=== PATIENT | male | born 1935 | race Caucasian/White ===

== ENCOUNTER 2019-03-03 15:34 | Inpatient (IN) | payer MEDICARE ==
[2019-03-03] MEDS ORDERED: Clindamycin/D5W 900 mg/50 ml Premix Bag ONE (16:06)
[2019-03-03] MEDS ORDERED: Piperacillin/Tazobactam 4.5 GM VIAL ONE (16:06)
[2019-03-03] MEDS ORDERED: Morphine 2 MG/ML SYRINGE ONE (16:06)
[2019-03-03] MEDS ORDERED: Ondansetron PF 4 MG/2 ML Vial ONE (16:06)
[2019-03-03 16:23] LABS: #Basophils 0.1 thou/uL (0.0-0.2); #Eosinphils 0.2 thou/uL (0.0-0.7); #Lymphocytes 2.3 thou/uL (1.20-3.40); #Monocytes 1.3 thou/uL (0.11-0.59); #Neutrophils 9.2 thou/uL (1.40-6.50); %Basophils 0.5 % (0.0-1.0); %Eosinophils 1.4 % (0.0-10.0); %Lymphocytes 17.4 % (21.0-51.0); %Monocytes 10.2 % (0.0-10.0); %Neutrophils 70.5 % (42.0-75.0); Hemoglobin 15.6 g/dL (14.0-18.0); Mean Corpuscular Hemoglobin 32.3 pg (27.0-31.0); Mean Corpuscular Volume 97.7 fL (78.0-98.0); Mean Platelet Volume 8.1 fL (7.4-10.4); Platelet Count 186 thou/uL (130-400); RBC Distribution Width 11.9 % (11.5-14.5); Red Blood Cell (RBC) Count 4.84 mill/uL (4.70-6.10); White Blood Cell (WBC) Count 13.1 thou/uL (4.8-10.8)
--- NOTE | 2019-03-03 16:39 | RAD ---
PORTABLE CHEST ONE VIEW: 03/03/19 at 4:13 p.m. HISTORY: Cough. FINDINGS/IMPRESSION: Comparison made with the exam of 08/23/16. Changes of median sternotomy and left sided and left sided AICD are again seen. The heart is enlarge d. No lobar consolidation, pneumothoraces, bev pulmonary edema or large effusions are seen. There a re changes of vertebroplasty in the lower thoracic spine. POS: [facility]
--- NOTE | 2019-03-03 16:41 | RAD ---
LEFT FINGER (THUMB) THREE VIEWS: 03/03/19 HISTORY: Fall, injury, left thumb pain, dislocation. FINDINGS/IMPRESSION: There is complete dorsal dislocation of the IP joint of the left thumb. There is suggestion of an avu lsion fracture involving the dorsal aspect of the base of the distal phalanx. POS: [facility]
[2019-03-03 16:43] LABS: Bilirubin Negative (Negative); Blood, Urine Negative (Negative); Clarity CLEAR (Clear); Glucose, Urine (Dipstick) Negative (Negative); Leukocyte Negative (Negative); Nitrite Negative (Negative); Protein, Urine (Dipstick) Negative (Neg-Trace); Specific Gravity, Urine 1.014 (1.002-1.036); pH, Urine 7.5 (5.0-9.0)
[2019-03-03 16:44] LABS: ALT (SGPT) 17 U/L (8-55); AST (SGOT) 18 U/L (5-34); Albumin 4.5 g/dL (3.4-4.8); Alkaline Phosphatase 78 U/L (40-150); Anion Gap 13 mmol/L (10-20); BUN (Urea Nitrogen) 13 mg/dL (8.4-25.7); Bilirubin, Total 1.3 mg/dL (0.2-1.2); Calc. Creatinine Clearance 0 mL/min (70-130); Calcium 9.5 mg/dL (7.8-10.44); Carbon Dioxide 28 mmol/L (23-31); Chloride 101 mmol/L (98-107); Estimated GFR-MDRD 80; Globulin 2.8 g/dL (2.4-3.5); Glucose 121 mg/dL (83-110); Potassium 3.9 mmol/L (3.5-5.1); Protein, Total 7.3 g/dL (5.8-8.1); Sodium 138 mmol/L (136-145)
[2019-03-03] MEDS ORDERED: Lidocaine 1% (PF) 30 ML VIAL ONE (16:54)
--- NOTE | 2019-03-03 18:43 | RAD ---
LEFT FINGER/THUMB TWO VIEWS: 03/03/19 HISTORY: Post reduction of dislocation. FINDINGS/IMPRESSION: Interval reduction of the dislocation at the IP joint of the left thumb has occurred since 4:15 p.m. of the same date. Anatomic alignment has been restored. Tiny bony density in the region of the IP jerome int likely represents a fracture. POS: [facility]
[2019-03-03] MEDS ORDERED: Adacel (T-DAP) 0.5 ML SYRINGE ONE (18:47)
[2019-03-03 20:22] LABS: Lactic Acid 1.1 mmol/L (0.5-2.2)
[2019-03-03 21:48] VITALS: BMI 27.7
[2019-03-03] MEDS ORDERED: Ondansetron PF 4 MG/2 ML Vial IVP PRN (22:08)
[2019-03-03] MEDS ORDERED: Ondansetron ODT 4 MG TAB SL PRN (22:08)
[2019-03-03] MEDS: Acetaminophen 325 MG TAB PO PRN (22:21)
[2019-03-03] MEDS: Sodium Chloride 0.9% 1,000 ML IV SCH (22:22)
[2019-03-03] MEDS: Piperacillin/Tazobactam 4.5 GM in Sodium Chloride 0.9% 100 ML IVPB SCH ×2 (22:25→23:01)
[2019-03-04] MEDS: Clindamycin/D5W 900 MG in Premix Bag 1 BAG IVPB SCH ×3 (00:03→17:07)
[2019-03-04] MEDS: Piperacillin/Tazobactam 4.5 GM in Sodium Chloride 0.9% 100 ML IVPB SCH ×4 (05:17→23:03)
[2019-03-04] MEDS: Acetaminophen 325 MG TAB PO PRN ×2 (05:18→20:38)
[2019-03-04] MEDS: Sodium Chloride 0.9% 1,000 ML IV SCH (08:16)
[2019-03-04] MEDS ORDERED: ISOVUE-370 76%-LOCM 1 ML ONE (13:00)
--- NOTE | 2019-03-04 13:23 | PDOC.EVN ---
Event Note - Event Note Event Note: H&P #[id number]
--- NOTE | 2019-03-04 14:35 | CT ---
CT scan head with and without contrast: Multiple axial tomograms obtained through the head pre and postcontrast administration. INDICATIONS: Headache COMPARISON: 09/22/2016 FINDINGS: Ventricles have normal size and position. Mild cortical volume loss is stable. No evidence of intracranial mass, hemorrhage, edema, or infarct. No abnormal enhancement identified on postcontrast study. Mild mucosal edema in the left maxillary antrum and in the ethmoid air cells. Lucencies in the bony calvarium are stable from prior exam and appear benign. IMPRESSION: No acute intracranial abnormality. Mucosal edema of paranasal sinuses as described.
[2019-03-04] MEDS: methylPREDNISolone Sod Succ 40 MG VIAL IVP SCH ×2 (17:08→23:03)
--- NOTE | 2019-03-04 18:57 | CON ---
DATE OF CONSULTATION: 03/04/2019 HISTORY OF PRESENT ILLNESS: Mr. Albert is an 83-year-old white male, who was at home. He states 2 days prior to admission, the patient began having a hard time breathing, became weaker, and the patient fell onto his left thumb, had immediate pain and deformity in the left thumb. Thus, he was brought into the emergency room. The patient had x-rays and diagnosed with open dorsal dislocation of the interphalangeal joint of the left thumb. The wound was cleansed, and the dislocation was reduced. The patient was placed in the splint. He was subsequently diagnosed with pneumonia and sepsis and has been placed on IV antibiotics. PHYSICAL EXAMINATION: VITAL SIGNS: His latest vital signs; temperature 98.4, pulse 63, respiratory rate 20, blood pressure 115/71, O2 saturation 96%. MUSCULOSKELETAL: Physical exam of the left thumb; the patient has laceration on the palmar aspect at the interphalangeal joint level. He has mild swelling. There is no erythema. No active drainage. The patient is able to flex and extend the distal phalanx. He has good sensation. DIAGNOSTIC DATA: X-rays of the left thumb when he first came in showed a dorsally dislocated interphalangeal joint of the thumb with the distal aspect of the proximal phalanx protruding through the wound palmarly. Postreduction x-ray shows good alignment of the interphalangeal joint. IMPRESSION: Status post open dorsal dislocation of the interphalangeal joint of the left thumb. PLAN: The wound looks very clean. There is no sign of infection. The patient is already receiving IV antibiotics for his pneumonia. We will place the patient in a splint and keep the IP joint in slight flexion and follow the patient and make sure that the thumb does not get infected. Job ID: [id number]
--- NOTE | 2019-03-04 19:09 | HP ---
CHIEF COMPLAINT: Mechanical fall. HISTORY OF PRESENT ILLNESS: This is an 83-year-old male, who was in the house when he had a mechanical trip and fall. The patient had a dislocation, laceration of his left thumb, also noted to have some shortness of breath, wheezing, and upper respiratory tract at time of arrival to the hospital. The patient had no other prior issues. Admits to past medical history of congestive heart failure, sees Dr. Villa for his cardiology. 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 The patient states that this complaint and symptoms that he is having right at this point in time does not feel like a heart attack due to the shortness of breath being present; however, does state that he has never had this sort of shortness of breath before. Denies any smoking. No nausea, vomiting, diarrhea, constipation, chest pain, fevers, or chills present, except for shortness of breath. The patient states that otherwise he also is having some pain in the left finger that he fell on and injured. Denies any alleviating or aggravating factors. The patient is seen and examined. Family at bedside. All questions answered. ALLERGIES: TO SULFA. PAST MEDICAL HISTORY: Congestive heart failure, hypertension, hyperlipidemia, obesity, and coronary artery disease. SOCIAL HISTORY: Nondrinker. Nonsmoker. FAMILY HISTORY: Pertinent positive for diabetes and hypertension. REVIEW OF SYSTEMS: All systems reviewed, pertinent positive in HPI, otherwise negative. PHYSICAL EXAMINATION: VITAL SIGNS: Blood pressure 115/71, respiratory rate of 20, pulse was 63, temperature 98.4, and O2 saturations 96% on 3 L nasal cannula. GENERAL: No acute distress, lying in bed, morbidly obese. HEENT: Pupils are equal, round, and reactive to light and accommodation. Extraocular muscles intact. Oral cavity moist and pink. NECK: Supple. Nontender. Thyroid appreciated. PULMONARY: Reveals no respiratory distress. Positive inspiratory wheezing noted. CARDIOVASCULAR: S1 and S2. No murmurs, rubs, or gallops are noted. Regular rate and rhythm. ABDOMEN: Rotund. Positive bowel sounds. Soft, nontender, and nondistended. EXTREMITIES: 2+ peripheral pulses. 1+ pitting edema. NEUROLOGIC: Cranial nerves 2 through 12 intact. No loss of motor or sensory function. LABORATORY DATA: CBC, BMP, and UA reviewed. Chest x-ray and finger x-rays reviewed. ASSESSMENT: 1. Displaced fracture with bone exposure on the left hand. 2. Chronic obstructive pulmonary disease exacerbation. 3. Shortness of breath. 4. Decompensated congestive heart failure. 5. Hypertension. 6. Hyperlipidemia. PLAN: At this point in time, we will start the patient on DuoNebs scheduled for the next 24 hours and switch to p.r.n. We will also start the patient on steroids. Continue antibiotics. Orthopedic Surgery has been consulted and currently evaluating the patient. Cultures pending. We will provide p.r.n. cough medication, blood pressure control, and supportive care. Monitor labs closely. Case and plan discussed with the patient and family at length at bedside. They understood and agreed with this plan. Job ID: [id number]
[2019-03-04] MEDS: guaiFENesin ER 600 MG TAB PO SCH (20:37)
[2019-03-04] MEDS: Benzonatate 100 MG CAP PO PRN (20:38)
[2019-03-04] MEDS: Tamsulosin HCl 0.4 MG CAP PO SCH (22:56)
[2019-03-04] MEDS ORDERED: ALPRAZolam 0.25 MG TAB PO SCH (23:00)
[2019-03-05] MEDS: Clindamycin/D5W 900 MG in Premix Bag 1 BAG IVPB SCH ×3 (00:54→16:42)
[2019-03-05] MEDS: methylPREDNISolone Sod Succ 40 MG VIAL IVP SCH ×3 (05:16→13:28)
[2019-03-05] MEDS: Piperacillin/Tazobactam 4.5 GM in Sodium Chloride 0.9% 100 ML IVPB SCH ×3 (05:16→18:18)
[2019-03-05] MEDS: Acetaminophen 325 MG TAB PO PRN (05:16)
[2019-03-05] MEDS: guaiFENesin ER 600 MG TAB PO SCH ×2 (09:07→21:14)
--- NOTE | 2019-03-05 12:17 | PDOC.PN ---
- Subjective Encounter Start Date: 03/05/19 Encounter Start Time: 12:15 Patient seen and examined, feeling better, no famly at bedside, no new issues, all questions answered. - Objective Vital Signs & Weight: Vital Signs (12 hours) Temp Pulse Resp BP Pulse Ox 03/05/19 10:06 72 20 95 03/05/19 08:30 97.5 F L 72 16 164/79 H 95 03/05/19 08:00 95 03/05/19 06:41 77 20 96 03/05/19 04:00 97.9 F 77 18 147/77 H 96 03/05/19 02:35 75 18 93 L 03/05/19 00:34 97.6 F 85 18 124/63 93 L Weight Weight 204 lb 9.6 oz I&O: 03/04/19 03/05/19 03/06/19 06:59 06:59 06:59 Intake Total 1000 750 240 Balance 1000 750 240 Result Diagrams: 03/03/19 16:09 03/03/19 16:07 Phys Exam - Physical Examination Constitutional: NAD HEENT: PERRLA, moist MMs, sclera anicteric, TM's clear Neck: no nodes, no JVD, supple Respiratory: no wheezing, no rales, no rhonchi Cardiovascular: RRR, no significant murmur, no rub Gastrointestinal: soft, non-tender, no distention, positive bowel sounds Musculoskeletal: pulses present, edema present (trace) Dx/Plan (1) Fracture of thumb Code(s): S62.509A - FRACTURE OF UNSP PHALANX OF UNSP THUMB, INIT FOR CLOS FX Status: Acute (2) Wheezing Code(s): R06.2 - WHEEZING Status: Acute (3) Congestive heart failure (CHF) Code(s): I50.9 - HEART FAILURE, UNSPECIFIED Status: Chronic (4) Diabetes type 2, controlled Code(s): E11.9 - TYPE 2 DIABETES MELLITUS WITHOUT COMPLICATIONS Status: Chronic (5) Hyperlipidemia Code(s): E78.5 - HYPERLIPIDEMIA, UNSPECIFIED Status: Chronic (6) Hypothyroidism (acquired) Code(s): E03.9 - HYPOTHYROIDISM, UNSPECIFIED Status: Chronic - Plan * decrease steroids today, will also switch duonebs to PRN * doing better * cont abx * DC plans in AM if patient continues to improve * wound care per sx team * cultures pending * case and plan d/w patient at length, he understood and agreed with this plan
[2019-03-05] MEDS: Tamsulosin HCl 0.4 MG CAP PO SCH (21:14)
[2019-03-05] MEDS: ALPRAZolam 0.25 MG TAB PO SCH (21:14)
[2019-03-06] MEDS: Piperacillin/Tazobactam 4.5 GM in Sodium Chloride 0.9% 100 ML IVPB SCH ×5 (00:24→23:27)
[2019-03-06] MEDS: methylPREDNISolone Sod Succ 40 MG VIAL IVP SCH ×3 (00:25→23:27)
[2019-03-06] MEDS: Clindamycin/D5W 900 MG in Premix Bag 1 BAG IVPB SCH ×3 (02:00→16:26)
[2019-03-06] MEDS: Benzonatate 100 MG CAP PO PRN (03:59)
[2019-03-06] MEDS: Acetaminophen 325 MG TAB PO PRN (04:02)
[2019-03-06 06:26] LABS: #Lymphocytes 1.2 thou/uL (1.20-3.40); #Monocytes 0.7 thou/uL (0.11-0.59); #Neutrophils 12.6 thou/uL (1.40-6.50); %Basophils 0.1 % (0.0-1.0); %Eosinophils 0.1 % (0.0-10.0); %Lymphocytes 8.2 % (21.0-51.0); %Monocytes 4.9 % (0.0-10.0); %Neutrophils 86.7 % (42.0-75.0); Hemoglobin 13.5 g/dL (14.0-18.0); Mean Corpuscular HGB CONC 32.8 g/dL (32.0-36.0); Mean Corpuscular Hemoglobin 32.9 pg (27.0-31.0); Mean Platelet Volume 8.5 fL (7.4-10.4); Platelet Count 188 thou/uL (130-400); White Blood Cell (WBC) Count 14.6 thou/uL (4.8-10.8)
[2019-03-06 06:47] LABS: Anion Gap 14 mmol/L (10-20); BUN (Urea Nitrogen) 19 mg/dL (8.4-25.7); Calc. Creatinine Clearance 97 mL/min (70-130); Calcium 8.7 mg/dL (7.8-10.44); Carbon Dioxide 26 mmol/L (23-31); Chloride 101 mmol/L (98-107); Estimated GFR-MDRD Greater than 90; Glucose 245 mg/dL (83-110); Potassium 4.1 mmol/L (3.5-5.1); Sodium 137 mmol/L (136-145)
[2019-03-06] MEDS: guaiFENesin ER 600 MG TAB PO SCH ×2 (08:22→20:37)
--- NOTE | 2019-03-06 10:39 | PQF ---
LUCIA SMITH LORETTA CHAVARRIA [id number] CLINICAL DOCUMENTATION IMPROVEMENT CLARIFICATION FORM: ICD-10 Updated PLEASE DO AN ADDENDUM TO THE PROGRESS NOTE WITH ANY DOCUMENTATION UPDATES OR ADDITIONS AND CARRY THROUGH TO DC SUMMARY. THANK YOU. DATE: 03/06/2019 ATTN: DR. Leda BORJA Please exercise your independent, professional judgment in responding to the clarification form. Clinical indicators are provided on the bottom of this form for your review. Please check appropriate box(es): [ x ] Sepsis due to: (Pna, UTI, gangrenous gall bladder, etc.) bronchitis/pneumonia [ ] Localized infection without sepsis [ ] Other diagnosis [ ] Unable to determine In addition, please specify: Present on Admission (POA): [ x ] Yes [ ] No [ ] Unable to determine For continuity of documentation, please document condition throughout progress notes and discharge summary. Thank You. CLINICAL INDICATORS - SIGNS / SYMPTOMS / LABS 03/03 ED : SEPSIS ALERT ACTIVATED: TEMP 102.2, RESP 26-32 03/03 ED PHYSICIAN DX: DISLOCATION LEFT THUMB, OPEN FRACTURE PNEUMONIA 03/03 WBC 13.1, 03/04 WBC 14.6 03/04 CONSULT (BRITTNI) THE PATIENT WAS SUBSEQUENTLY DIAGNOSED WITH PNEUMONIA AND SEPSIS AND HAS BEEN PLACED ON IV ANTIBIOTICS NO FURTHER MENTION OF SEPSIS TO DATE RISK: OPEN FRACTURE W EXPOSED BONE LEFT HAND POSSIBLE PNEUMONIA ADVANCED AGE (83) TREATMENTS: ZOSYN IV ( 03/03-PRESENT) CLINDAMYCIN IV ( 03/04-PRESENT) SUPPLEMENTAL O2 ( 03/04-PRESENT) THANK YOU! CLARE (This form is maintained as a part of the permanent medical record) 2014 [employer]. All Rights Reserved [email or web address] [phone] TIFFANIE
--- NOTE | 2019-03-06 10:53 | PQF ---
LUCIA SMITH LORETTA CHAVARRIA [id number] CLINICAL DOCUMENTATION IMPROVEMENT CLARIFICATION FORM: ICD-10 Updated PLEASE DO AN ADDENDUM TO THE PROGRESS NOTE WITH ANY DOCUMENTATION UPDATES OR ADDITIONS AND CARRY THROUGH TO DC SUMMARY. THANK YOU. DATE: 03/06/2019 ATTN:DR. Leda BORJA Please exercise your independent, professional judgment in responding to the clarification form. Clinical indicators are provided on the bottom of this form for your review. Please check appropriate box(s): [ ] Empirically treating Gram Negative Pneumonia [ ] Pneumonia secondary to (specify organism / underlying disease) [ ] Simple Pneumonia (community acquired - nosocomial) [ ] Bronchopneumonia [ x ] Pneumonia of unknown etiology [ ] Other diagnosis [ ] Unable to determine In addition, please specify: Present on Admission (POA): [ x ] Yes [ ] No [ ] Unable to determine For continuity of documentation, please document condition throughout progress notes and discharge summary. Thank You. CLINICAL INDICATORS - SIGNS / SYMPTOMS / LABS 03/03 ED: T 99-102.2, 94-96% RA> 95-99% 2L/NC, PHYSICIAN EXAM, WHEEZING PRESENT DIFFUSELY 03/03 ED PHYSICIAN DX: DISLOCATION LEFT THUMB, OPEN FRACTURE, PNEUMONIA 03/04 CONSULT (BRITTNI) THE PATIENT WAS SUBSEQUENTLY DIAGNOSED WITH PNEUMONIA AND SEPSIS AND HAS BEEN PLACED ON IV ANTIBIOTICS NO FURTHER MENTION OF PNEUMONIA TO DATE RISK: COPD EXACERBATION ( H & P) RECENT UPPER RESPIRATORY INFECTION ( ED REPORT) ADVANCED AGE (83) TREATMENTS: ZOSYN IV ( 03/03-PRESENT) CLINDAMYCIN IV ( 03/04-PRESENT) SUPPLEMENTAL O2 ( 03/04-PRESENT) THANK YOU ! CLARE (This form is maintained as a part of the permanent medical record) 2014 [employer]. All Rights Reserved [email or web address] [phone] MTDDel
--- NOTE | 2019-03-06 12:29 | PDOC.PN ---
- Subjective Encounter Start Date: 03/06/19 Encounter Start Time: 12:27 Patient seen and examined, states he feels better, states he's still coughing, no other issues overnight, family at bedside, all questions answered. - Objective Vital Signs & Weight: Vital Signs (12 hours) Temp Pulse Resp BP Pulse Ox 03/06/19 04:25 72 18 93 L 03/06/19 04:00 98.0 F 75 18 128/74 92 L 03/06/19 00:53 77 Weight Weight 204 lb 9.6 oz I&O: 03/05/19 03/06/19 03/07/19 06:59 06:59 06:59 Intake Total 750 480 180 Balance 750 480 180 Result Diagrams: 03/06/19 05:47 03/06/19 05:47 Phys Exam - Physical Examination Constitutional: NAD HEENT: PERRLA, moist MMs, sclera anicteric Neck: no nodes, no JVD Respiratory: no rales, no rhonchi +wheezing, MUCH better than yesterday Cardiovascular: RRR, no significant murmur, no rub Gastrointestinal: soft, non-tender, no distention Musculoskeletal: pulses present, edema present Dx/Plan (1) Fracture of thumb Code(s): S62.509A - FRACTURE OF UNSP PHALANX OF UNSP THUMB, INIT FOR CLOS FX Status: Acute (2) Wheezing Code(s): R06.2 - WHEEZING Status: Acute (3) Congestive heart failure (CHF) Code(s): I50.9 - HEART FAILURE, UNSPECIFIED Status: Chronic (4) Diabetes type 2, controlled Code(s): E11.9 - TYPE 2 DIABETES MELLITUS WITHOUT COMPLICATIONS Status: Chronic (5) Hyperlipidemia Code(s): E78.5 - HYPERLIPIDEMIA, UNSPECIFIED Status: Chronic (6) Hypothyroidism (acquired) Code(s): E03.9 - HYPOTHYROIDISM, UNSPECIFIED Status: Chronic - Plan * cont with steroids, improving, but has still some wheezing * PT and speech evaluation for today * cont abx * DC plans in AM if patient doing and if he remain afebrile * case and plan d/ wpatient at length, he understood and agreed with this plan
--- NOTE | 2019-03-06 14:05 | RAD ---
Exam: Modified barium swallow with speech therapist. HISTORY: Pneumonitis due to interrelation of food and vomiting Fluoroscopy time 2.2 minutes. Dose: 1.395 Gycm2 FINDINGS: Patient was evaluated in the upright position while seated in the lateral projection. Patient was giv en numerous consistencies. Evidence for penetration was noted with thin liquids with some delayed swallowing reflex as well as some pooling in the vallecula with numerous consistencies. IMPRESSION: Please see speech therapy report for additional findings and recommendations.
[2019-03-06] MEDS: Tamsulosin HCl 0.4 MG CAP PO SCH (20:36)
[2019-03-06] MEDS: ALPRAZolam 0.25 MG TAB PO SCH (20:37)
[2019-03-07] MEDS: Clindamycin/D5W 900 MG in Premix Bag 1 BAG IVPB SCH ×2 (00:41→08:36)
[2019-03-07] MEDS ORDERED: Melatonin 3 MG TAB PO PRN (01:12)
[2019-03-07] MEDS: Piperacillin/Tazobactam 4.5 GM in Sodium Chloride 0.9% 100 ML IVPB SCH ×2 (05:46→11:03)
[2019-03-07] MEDS: guaiFENesin ER 600 MG TAB PO SCH (08:37)
[2019-03-07 10:05] VITALS: BP 152/92; TEMP 98.1
[2019-03-07] MEDS: methylPREDNISolone Sod Succ 40 MG VIAL IVP SCH (11:04)
--- NOTE | 2019-03-07 13:08 | PDOC.EVN ---
Event Note - Event Note Event Note: DC SUMMARY #[id number]
--- NOTE | 2019-03-07 21:12 | DIS ---
DATE OF ADMISSION: 03/03/2019 DATE OF DISCHARGE: 03/07/2019 ADMITTING DIAGNOSES: Slip and fall, wheezing, pneumonia. DISCHARGE DIAGNOSES: Open thumb fracture, stable. Pneumonia, resolved. Wheezing, resolved. HOSPITAL COURSE: This is an 83-year-old male, morbidly obese, admitted to the hospital after a slip and fall on his left hand. The patient had an open fracture on his thumb. The patient was seen by the Internal Medicine Team as well as Orthopedic Surgery. The patient had a sling placed, was given IV steroids as well as breathing treatment as he was wheezing and found to have bronchitis pneumonia. The patient was found to have severe significant improvement after 3 days of steroids and antibiotics. At point in time of discharge, did not have any nausea, vomiting, diarrhea, constipation, chest pain, fevers, chills, or shortness of breath. The patient was to follow up with PCP within 2 weeks for further management and care, given medical therapy regimen for a Medrol Dosepak as well as Levaquin for 5 days. The patient is also to follow up with Orthopedics within 2 weeks for a sling and re-evaluation of his thumb. At point in time of discharge, the patient's condition was stable. Family at bedside. Case and plan discussed with the patient and family at length, they understood and agreed with this plan. DISPOSITION: Home. FOLLOWUP: Follow up with PCP within 1 week, Orthopedics in 2 weeks. MEDICATIONS: See MAR. ACTIVITY: As tolerated with assistance as needed. DIET: Low-fat, low-calorie, high-fiber diet. CONDITION: Stable. PROGNOSIS: Good. Case and plan once again discussed with the patient and family at length. They understood and agreed with this plan. Job ID: [id number]
== END 2019-03-07 14:43 | disposition home or self-care (01) | DRG 871 ==
LOC: ERS 15:34 → T4-B 18:15
PROVIDERS: ADMIT Internal Medicine; ATTEND Internal Medicine
DX: A41.9 Sepsis, unspecified organism (principal); J18.8 Other pneumonia, unspecified organism; J44.1 Chronic obstructive pulmonary disease with (acute) exacerbation; J44.0 Chronic obstructive pulmonary disease with (acute) lower respiratory infection; I25.10 Atherosclerotic heart disease of native coronary artery without angina pectoris; E78.5 Hyperlipidemia, unspecified; I11.0 Hypertensive heart disease with heart failure; I50.9 Heart failure, unspecified; S62.509A Fracture of unspecified phalanx of unspecified thumb, initial encounter for closed fracture; E03.9 Hypothyroidism, unspecified; E11.9 Type 2 diabetes mellitus without complications; E66.01 Morbid (severe) obesity due to excess calories; W01.0XXA Fall on same level from slipping, tripping and stumbling without subsequent striking against object, initial encounter; Z88.2 Allergy status to sulfonamides; Z79.82 Long term (current) use of aspirin; Z79.899 Other long term (current) drug therapy
CPT/HCPCS: 36415; 70470; 71045; 74230; 80048; 80053; 81003; 83605; 85025; 87040; 87086; 87804; 90715; 93005; 94640; J2001; J2270; J2405; J2543; J2920; J3370; J3490; J7620; Q9966

== ENCOUNTER 2021-08-31 12:40 | Outpatient (CLI) | payer MEDICARE | END 2021-08-31 12:41 | disposition home or self-care (01) | LOC: BICCT 12:40 | PROVIDERS: ATTEND Anesthesiology Pain Medicine | DX: M47.26 Other spondylosis with radiculopathy, lumbar region (principal); M51.16 Intervertebral disc disorders with radiculopathy, lumbar region; M47.817 Spondylosis without myelopathy or radiculopathy, lumbosacral region; M81.0 Age-related osteoporosis without current pathological fracture; M48.061 Spinal stenosis, lumbar region without neurogenic claudication; M48.07 Spinal stenosis, lumbosacral region; S32.001A Stable burst fracture of unspecified lumbar vertebra, initial encounter for closed fracture | CPT/HCPCS: 72131 ==

== ENCOUNTER 2023-08-16 07:37 | Outpatient (CLI) | payer MEDICARE ==
[2023-08-16] MEDS ORDERED: Magnevist 469MG/ML 20 ML VIAL ONE (12:32)
== END 2023-08-16 07:38 | disposition home or self-care (01) ==
LOC: MRI 07:37
PROVIDERS: ATTEND Family Medicine
DX: G45.3 Amaurosis fugax (principal); H35.82 Retinal ischemia; I67.89 Other cerebrovascular disease; G93.89 Other specified disorders of brain
CPT/HCPCS: 70553; 93880

== ENCOUNTER 2023-09-05 12:02 | Outpatient (CLI) | payer MEDICARE | END 2023-09-05 12:03 | disposition home or self-care (01) | LOC: CT 12:02 | PROVIDERS: ATTEND Thoracic Surgery (Cardiothoracic Vascular Surgery) | DX: I65.23 Occlusion and stenosis of bilateral carotid arteries (principal) | CPT/HCPCS: 70498; 82565 ==

== ENCOUNTER 2023-09-16 15:00 | Inpatient (IN) | payer MEDICARE ==
[2023-09-19] MEDS ORDERED: Heparin 5,000 UNITS/ML VIAL ONE (06:28)
[2023-09-19] MEDS ORDERED: Protamine Sulfate 50 MG/5 ML VIAL ONE (06:28)
[2023-09-19] MEDS ORDERED: EPINEPHrine 1 MG/ML VIAL ONE (06:28)
[2023-09-19] MEDS ORDERED: Dexamethasone 4 mg/ml Vial ONE (06:28)
[2023-09-19] MEDS ORDERED: Bupivacaine PF 0.5% 30 ML VIAL ONE (06:29)
[2023-09-19] MEDS ORDERED: Norepinephrine 4 MG/4 ML VIAL ONE (06:39)
[2023-09-19] MEDS ORDERED: fentaNYL PF 100 MCG/2 ML SYRINGE ONE (06:39)
[2023-09-19] MEDS ORDERED: Midazolam HCl 2 mg/2 ml Vial ONE (06:40)
[2023-09-19] MEDS ORDERED: Phenylephrine 40 MG/NS 250 ML 250 ML ONE (06:56)
[2023-09-19] MEDS ORDERED: SUGAMMADEX SODIUM 200 MG/2 ML VIAL ONE (07:04)
[2023-09-19] MEDS ORDERED: Ondansetron PF 4 MG/2 ML Vial ONE (07:46)
[2023-09-19] MEDS ORDERED: Lidocaine 1% PF 5 ML VIAL ONE (07:46)
[2023-09-19] MEDS ORDERED: Rocuronium Bromide 10 MG/ML (10ML VIAL) ONE (07:46)
[2023-09-19] MEDS ORDERED: ePHEDrine Sulfate 50 MG/10 ML VIAL ONE (07:46)
[2023-09-19] MEDS ORDERED: PROPOFOL 200 MG/20 ML VIAL ONE (07:46)
[2023-09-19] MEDS ORDERED: Dexamethasone 20 MG/5 ML VIAL ONE (07:46)
[2023-09-19] MEDS ORDERED: Aspirin 81 mg Enteric Coated Tablet PO SCH ×2 (09:00→14:00)
[2023-09-19] MEDS ORDERED: CO Q-10 CAPSULE 100 MG PO SCH ×2 (09:00→14:00)
[2023-09-19] MEDS ORDERED: Clopidogrel Bisulfate 75 MG TAB PO SCH ×2 (09:00→14:00)
[2023-09-19] MEDS ORDERED: Acetaminophen 325 MG TAB PO PRN (09:10)
[2023-09-19] MEDS ORDERED: fentaNYL 50 mcg/mL 1 mL Vial SLOW IVP PRN ×2 (09:10)
[2023-09-19] MEDS ORDERED: THYROID PORK 32.5 MG PO SCH (09:10)
[2023-09-19] MEDS ORDERED: Ipratropium/Albuterol 3 ML NEB NEB PRN (09:10)
[2023-09-19] MEDS ORDERED: CYANOCOBALAMIN 2500 MCG PO SCH (09:10)
[2023-09-19] MEDS ORDERED: Nitroglycerin 50 MG/250 ML BOT 250 ML IVPB PRN (09:10)
[2023-09-19] MEDS ORDERED: Ondansetron PF 4 MG/2 ML Vial IVP PRN (09:10)
[2023-09-19] MEDS ORDERED: traMADol HCl 50 MG TAB PO PRN ×2 (09:10)
[2023-09-19] MEDS ORDERED: [UNRECOGNIZED DRUG - OTHER] PO SCH (09:10)
[2023-09-19] MEDS ORDERED: SUB PO SCH (09:10)
[2023-09-19] MEDS ORDERED: Phenylephrine 40 MG in Sodium Chloride 0.9% 250 ML 250 ML IVPB PRN (09:10)
[2023-09-19 12:21] VITALS: BMI 25.7
[2023-09-19] MEDS: Ipratropium/Albuterol 3 ML NEB NEB SCH ×3 (13:18→23:05)
[2023-09-19] MEDS: CEFAZOLIN 2 GM in Sodium Chloride 0.9% 100 ML IVPB SCH ×2 (13:55→21:34)
[2023-09-19] MEDS: Sodium Chloride 0.9% 1,000 ML IV SCH ×2 (14:10→20:54)
[2023-09-19] MEDS: Potassium Chloride 10 MEQ TAB PO SCH (14:12)
[2023-09-19] MEDS ORDERED: Tamsulosin HCl 0.4 MG CAP PO SCH (21:00)
[2023-09-19] MEDS ORDERED: Sacubitril 24MG/Valsartan 26 MG TAB PO SCH (21:00)
[2023-09-19] MEDS ORDERED: Loratadine 10 MG TAB PO SCH (21:00)
[2023-09-19] MEDS: Carvedilol 6.25 MG TAB PO SCH (21:00)
[2023-09-19] MEDS ORDERED: Non-Formulary Item 1 EACH (Loratadine [Claritin] 10 MG Capsule) PO SCH (21:00)
[2023-09-19] MEDS ORDERED: Thiamine 100 MG TAB PO SCH (21:00)
[2023-09-19] MEDS ORDERED: THIAMINE HCL 250 MG PO SCH (21:00)
[2023-09-19] MEDS ORDERED: Rosuvastatin 20 MG TAB PO SCH (21:00)
[2023-09-19] MEDS ORDERED: Pioglitazone HCl 15 MG TAB PO SCH (21:00)
[2023-09-19] MEDS ORDERED: ALPRAZolam 0.25 MG TAB PO SCH (21:00)
[2023-09-19] MEDS ORDERED: Carvedilol 25 MG TAB PO SCH (21:00)
[2023-09-20] MEDS: Sodium Chloride 0.9% 1,000 ML IV SCH (05:54)
[2023-09-20] MEDS: CEFAZOLIN 2 GM in Sodium Chloride 0.9% 100 ML IVPB SCH (05:54)
[2023-09-20] MEDS: Ipratropium/Albuterol 3 ML NEB NEB SCH (07:09)
[2023-09-20] MEDS: Potassium Chloride 10 MEQ TAB PO SCH (08:41)
[2023-09-20] MEDS: Carvedilol 6.25 MG TAB PO SCH ×2 (08:42→09:54)
[2023-09-20 08:46] VITALS: TEMP 98.1
[2023-09-20] MEDS ORDERED: Cyanocobalamin (Vitamin B-12) 1,000 MCG TAB PO SCH (09:00)
[2023-09-20] MEDS ORDERED: Aspirin 81 mg Enteric Coated Tablet PO SCH (09:00)
[2023-09-20] MEDS ORDERED: Thyroid 30 MG TAB PO SCH (09:00)
[2023-09-20] MEDS ORDERED: Furosemide 40 MG TAB PO SCH (09:00)
[2023-09-20] MEDS ORDERED: Fish Oil 1,000 MG CAP PO SCH (09:00)
[2023-09-20] MEDS ORDERED: Clopidogrel Bisulfate 75 MG TAB PO SCH (09:00)
[2023-09-20] MEDS ORDERED: CO Q-10 CAPSULE 100 MG PO SCH (09:00)
[2023-09-20] MEDS ORDERED: Furosemide 20 MG TAB PO SCH (09:00)
[2023-09-20] MEDS ORDERED: Non-Formulary Item 1 EACH (Omega-3/Dha/Epa/Fish Oil [Fish Oil 1,000 Mg Softgel] 1 CAP Cap PO SCH (09:00)
== END 2023-09-20 09:49 | disposition home or self-care (01) | DRG 36 ==
LOC: SURG A 09-19 06:09 → CCU 09-19 11:43
PROVIDERS: ADMIT Thoracic Surgery (Cardiothoracic Vascular Surgery); ATTEND Thoracic Surgery (Cardiothoracic Vascular Surgery)
PROC: 037K3DZ Dilation of Right Internal Carotid Artery with Intraluminal Device, Percutaneous Approach (ICD-10-PCS; principal; 2023-09-19)
DX: I65.21 Occlusion and stenosis of right carotid artery (principal); E78.5 Hyperlipidemia, unspecified; E11.40 Type 2 diabetes mellitus with diabetic neuropathy, unspecified; Z90.49 Acquired absence of other specified parts of digestive tract; Z95.1 Presence of aortocoronary bypass graft; Z95.5 Presence of coronary angioplasty implant and graft; Z88.2 Allergy status to sulfonamides
CPT/HCPCS: 94640; C1769; C1876; C1884; J0171; J1100; J1642; J1644; J2250; J2405; J2704; J2720; J3490; J7620; S0020

== ENCOUNTER 2023-09-16 15:09 | Outpatient (CLI) | payer MEDICARE ==
[2023-09-16 17:13] LABS: Hematocrit 42.9 % (38.8-50.0); Hemoglobin 14.3 g/dL (13.5-17.5); Mean Corpuscular HGB CONC 33.3 g/dL (32.0-36.0); Mean Corpuscular Hemoglobin 31.9 pg (27.0-33.0); Mean Corpuscular Volume 95.8 fl (81.2-95.1); Mean Platelet Volume 10.8 fl (7.4-10.4); Platelet Count 194 10x3/uL (150-450); RBC Distribution Width 12.3 % (11.5-14.5); Red Blood Cell (RBC) Count 4.48 10x6/uL (4.32-5.72); White Blood Cell (WBC) Count 6.3 10x3/uL (3.5-10.5)
[2023-09-16 17:33] LABS: Anion Gap 14 mmol/L (10-20); BUN (Urea Nitrogen) 18 mg/dL (8.4-25.7); Calc. Creatinine Clearance 0 mL/min (70-130); Calcium 8.8 mg/dL (7.8-10.44); Carbon Dioxide 26 mmol/L (23-31); Chloride 105 mmol/L (98-107); Estimated GFR 84; Glucose 113 mg/dL (83-110); Potassium 4.4 mmol/L (3.5-5.1); Sodium 141 mmol/L (136-145)
== END 2023-09-16 15:10 | disposition home or self-care (01) ==
LOC: LABBT 15:09
PROVIDERS: ATTEND Thoracic Surgery (Cardiothoracic Vascular Surgery)
DX: Z01.818 Encounter for other preprocedural examination (principal); I65.21 Occlusion and stenosis of right carotid artery
CPT/HCPCS: 80048; 85027; 93005; 93010